=== PATIENT | male | born 1985 | race Caucasian/White ===

== ENCOUNTER 2020-04-14 09:29 | Outpatient (CLI) | payer BC, SELFPAY ==
--- NOTE | 2020-04-21 06:22 | WPDPFTINT ---
PFT Interpretation This is a pulmonary function test with pre and post-bronchodilator spirometry, plethysmography and diffusing capacity. The test was performed and results interpreted in accordance with the 2019 and 2005 ATS/ERS Task Force guidelines respectively using the Juan J/Alicja reference equations. Findings: Spirometry: The contour of the inspiratory and expiratory flow tracing are normal. The pre-bronchodilator FVC is 4.63 L, 94% predicted. The pre bronchodilator FEV1 is 3.38 L, 89% predicted. The FEV1: FVC ratio is 73%. The post bronchodilator FVC is 4.71 L, representing a 2% increase. The post bronchodilator FEV1 is 3.53 L, representing a 4% increase. Plethysmography: The total lung capacity is 5.21 L, 80% predicted. The functional residual capacity is 2.23 L, 65% predicted. The residual volume is 0.59 L, 32% predicted. Diffusing capacity: The absolute diffusing capacity is 26.1, 93% predicted. The diffusing capacity corrected for alveolar volume is 4.85, 110% predicted. Impression: The spirometry is normal without evidence of an obstructive abnormality. There is no significant improvement after inhaling a single dose of albuterol. There is a reduction in the residual volume and functional residual capacity with a normal total lung capacity. This is an abnormal but nonspecific lung volume pattern. The diffusing capacity is normal. There are no prior studies for comparison
== END 2020-04-14 09:30 | disposition home or self-care (01) ==
PROVIDERS: PCP Emergency Medicine; Visit Provider Emergency Medicine
DX: J45.909 Unspecified asthma, uncomplicated (principal)
CPT/HCPCS: 94060; 94726; 94729

== ENCOUNTER 2023-01-12 12:23 | Emergency (ER) | payer BC, SELFPAY ==
--- NOTE | 2023-01-12 12:26 | ED_ITS ---
HPI - Wound/Laceration General Chief Complaint: Wound/Laceration Stated Complaint: staple removal Time Seen by Provider: 01/12/23 12:25 Source: patient Mode of arrival: ambulatory Limitations: no limitations History of Present Illness HPI narrative: Wm is a 37-year-old male patient presenting to the clinic today for a staple removal from his head. He reports 10 days ago he fell and hit the back of his head. He had alexis placed to close the wound. Is here today for a alexsi to be removed. Has 5 alexis to the posterior scalp Related Data Allergies Allergy/AdvReac Type Severity Reaction Status Date / Time No Known Allergies Allergy Verified 01/12/23 12:33 Review of Systems Review of Systems: Pertinent positives per HPI. Patient denies any fever, chills, rash, headache, visual changes, dizziness, cough, runny nose, sore throat, shortness of breath, chest pain, palpitations, nausea, vomiting, diarrhea, constipation, abdominal pain, or any urinary issues. PMFSH Comments At the time of my signature, I reviewed and agree with the nursing past medical, surgical, social, and family history. There is no relevant family history pertinent to the patient complaint. Exam Narrative: General: Well-developed, well nourished, in no apparent distress Head: Normocephalic, atraumatic. Cardio: Regular rate and rhythm, s1 and s2 normal, no murmur appreciated. Resp: Clear to auscultation bilaterally, no rhonchi, rales, wheezing or rubs. Integumentary: [place], warm, and dry, intact without lesion, no rashes. Well healed wound to the posterior scalp with [address] Stable remover was used to remove alexis without issue. No redness or swelling noted Course Course Emergency Course: Portions of this record may have been created with voice recognition software. Level of Care: Express Care Visit Vital Signs Vital signs: Vital signs reviewed MDM - Wound/Laceration MDM Narrative Medical decision making narrative: At the time of visit patient is resting comfortably on the exam table. Stable was removed and wound appears to be well healed. Supportive measures were discussed with the patient he voiced understanding discharge instructions and agrees to treatment plan. Differential Diagnosis Differential diagnosis: Likely laceration, abscess, abrasion, avulsion of skin and other (Encounter for staple removal from scalp) Discharge Plan Discharge Clinical Impression: Encounter for staple removal Patient Disposition: Home, Self-Care Condition: Stable Instructions: Antibiotic Form, Stitches Removal (ED) Additional Instructions: Keep area clean and dry Follow-up with your PCP as needed Follow-up/Referrals: Oliverio Metzger MD [Primary Care Provider] - Time of Disposition: 12:28 Quality NIHSS Nursing Documentation ED NIHSS nursing documentation: reviewed/agree
[2023-01-12 12:32] VITALS: BP 142/74; PULSE 66; RESP 16; TEMP 37.1; O2SAT 100
[2023-01-12 12:33] VITALS: BP 142/74; PULSE 66; RESP 16; TEMP 37.1; O2SAT 100
== END 2023-01-12 12:35 | disposition home or self-care (01) ==
PROVIDERS: Emergency Provider Nurse Practitioner Family; PCP Emergency Medicine
DX: Z48.02 Encounter for removal of sutures (principal)
CPT/HCPCS: 99211; G0463